=== PATIENT | female | born 1990 | race American Indian/Alaskan Native ===

== ENCOUNTER 2019-12-09 18:57 | Emergency (ER) | payer SELFPAY ==
--- NOTE | 2019-12-09 19:35 | Event Note ---
ED Screening Note Date of service: 12/09/19 Time: 19:33 ED Screening Note: Pt complains of dizziness x 1-2 weeks denies headache describes dizziness as feeling like she wants to pass out denies past medical hx This initial assessment/diagnostic orders/clinical plan/treatment(s) is/are subject to change based on patients health status, clinical progression and re- assessment by fellow clinical providers in the ED. Further treatment and workup at subsequent clinical providers discretion. Patient/guardian urged not to elope from the ED as their condition may be serious if not clinically assessed and managed. Initial orders include: labs ekg
[2019-12-09 19:38] VITALS: BP 117/69
[2019-12-09 20:09] LABS: Basophils % (Auto) 0.2 % (0.0-1.8); Eosinophils # (Auto) 0.1 K/mm3 (0.0-0.4); Eosinophils % (Auto) 0.9 % (0.0-4.3); Hematocrit 32.5 % (30.3-42.9); Hemoglobin 11.4 gm/dl (10.1-14.3); Lymphocytes # (Auto) 1.8 K/mm3 (1.2-5.4); Lymphocytes % (Auto) 29.8 % (13.4-35.0); Mean Corpuscular HGB Conc 35 % (30-34); Mean Corpuscular Volume 98 fl (79-97); Monocytes # (Auto) 0.4 K/mm3 (0.0-0.8); Monocytes % (Auto) 6.9 % (0.0-7.3); Platelet Count 129 K/mm3 (140-440); Red Cell Distribution Width 12.9 % (13.2-15.2)
[2019-12-09 20:26] LABS: Alanine Aminotransferase 17 units/L (7-56); Albumin 4.3 g/dL (3.9-5); Blood Urea Nitrogen 7 mg/dL (7-17); Calcium 9.3 mg/dL (8.4-10.2); Hemolysis Index 6
[2019-12-09 20:28] LABS: BUN/Creatinine Ratio 14
[2019-12-09 21:15] LABS: Bilirubin,Urine NEG (Negative); Blood,Urine MOD (Negative); Color,Urine Yellow (Yellow); Mucus,Urine 3+ /HPF
--- NOTE | 2019-12-09 23:06 | Emergency Department Report ---
ED General Adult HPI - General Chief complaint: Dizziness Stated complaint: DIZZY AND POSS Time Seen by Provider: 12/09/19 19:32 Source: patient Mode of arrival: Ambulatory Limitations: No Limitations - History of Present Illness Initial comments: 29-year-old F [place] female sent emerge department complaining of left flank pain and dysuria. Ports no fever, chills, sweats no chest pain no palpitations no nausea vomiting does report some mild dizziness off and on. Radiation: non-radiation Quality: burning, stabbing Associated Symptoms: denies: confusion, chest pain, cough, headaches, loss of appetite, nausea/vomiting, shortness of breath, syncope - Related Data Allergies Allergy/AdvReac Type Severity Reaction Status Date / Time No Known Allergies Allergy Unverified 12/09/19 19:34 ED Review of Systems ROS: Stated complaint: DIZZY AND POSS Other details as noted in HPI Comment: All other systems reviewed and negative ED Past Medical Hx - Past Medical History Previous Medical History?: No - Social History Smoking Status: Never Smoker ED Physical Exam - General Limitations: No Limitations General appearance: alert, in no apparent distress - Head Head exam: Present: atraumatic, normocephalic - Eye Eye exam: Present: normal appearance, PERRL, EOMI Pupils: Present: normal accommodation - ENT ENT exam: Present: normal exam, normal orophraynx, mucous membranes moist, TM's normal bilaterally - Neck Neck exam: Present: normal inspection, full ROM - Respiratory Respiratory exam: Present: normal lung sounds bilaterally. Absent: respiratory distress - Cardiovascular Cardiovascular Exam: Present: regular rate, normal rhythm. Absent: systolic murmur, diastolic murmur, rubs, gallop - GI/Abdominal GI/Abdominal exam: Present: soft, normal bowel sounds. Absent: tenderness, guarding, hyperactive bowel sounds, organomegaly - Extremities Exam Extremities exam: Present: normal inspection, normal capillary refill - Back Exam Back exam: Present: normal inspection, CVA tenderness (L). Absent: CVA tenderness (R) - Neurological Exam Neurological exam: Present: alert, oriented X3, CN II-XII intact, normal gait - Psychiatric Psychiatric exam: Present: normal affect, normal mood - Skin Skin exam: Present: warm, dry, intact, normal color. Absent: rash ED Course Vital Signs 12/09/19 19:35 Temperature 99.0 F Pulse Rate 93 H Respiratory 20 Rate Blood Pressure 117/69 O2 Sat by Pulse 98 Oximetry ED Medical Decision Making - Lab Data Result diagrams: 12/09/19 19:57 12/09/19 19:57 Lab Results 12/09/19 12/09/19 12/09/19 Range/Units 19:57 19:57 20:56 WBC 5.9 (4.5-11.0) K/mm3 RBC 3.30 L (3.65-5.03) M/mm3 Hgb 11.4 (10.1-14.3) gm/dl Hct 32.5 (30.3-42.9) % MCV 98 H (79-97) fl MCH 35 H (28-32) pg MCHC 35 H (30-34) % RDW 12.9 L (13.2-15.2) % Plt Count 129 L (140-440) K/mm3 Lymph % (Auto) 29.8 (13.4-35.0) % [place] % (Auto) 6.9 (0.0-7.3) % Eos % (Auto) 0.9 (0.0-4.3) % Baso % (Auto) 0.2 (0.0-1.8) % Lymph # (Auto) 1.8 (1.2-5.4) K/mm3 [place] # (Auto) 0.4 (0.0-0.8) K/mm3 Eos # (Auto) 0.1 (0.0-0.4) K/mm3 Baso # (Auto) 0.0 (0.0-0.1) K/mm3 Seg Neutrophils % 62.2 (40.0-70.0) % Seg Neutrophils # 3.7 (1.8-7.7) K/mm3 Sodium 138 (137-145) mmol/L Potassium 3.5 L (3.6-5.0) mmol/L Chloride 101.9 (98-107) mmol/L Carbon Dioxide 25 (22-30) mmol/L Anion Gap 15 mmol/L BUN 7 (7-17) mg/dL Creatinine 0.5 L (0.6-1.2) mg/dL Estimated GFR > 60 ml/min BUN/Creatinine Ratio 14 % Glucose 96 (65-100) mg/dL Calcium 9.3 (8.4-10.2) mg/dL Total Bilirubin 1.20 (0.1-1.2) mg/dL AST 26 (5-40) units/L ALT 17 (7-56) units/L Alkaline Phosphatase 33 L (35-129) units/L Total Protein 6.9 (6.3-8.2) g/dL Albumin 4.3 (3.9-5) g/dL Albumin/Globulin Ratio 1.7 % Urine Color Yellow (Yellow) Urine Turbidity Clear (Clear) Urine pH 6.0 (5.0-7.0) Ur Specific [place] 1.024 (1.003-1.030) Urine Protein 30 mg/dl (Negative) mg/dL Urine Glucose (UA) Neg (Negative) mg/dL Urine Ketones 20 (Negative) mg/dL Urine Blood Mod (Negative) Urine Nitrite Neg (Negative) Urine Bilirubin Neg (Negative) Urine Urobilinogen 4.0 (<2.0) mg/dL Ur Leukocyte Esterase Mod (Negative) Urine WBC (Auto) 13.0 H (0.0-6.0) /HPF Urine RBC (Auto) 21.0 (0.0-6.0) /HPF U Epithel Cells (Auto) 5.0 (0-13.0) /HPF Urine Mucus 3+ /HPF Urine Yeast (Budding) Few /HPF - Medical Decision Making This patient presents to the emergency department with symptoms consistent with acute uncomplicated cystitis. No systemic symptoms. Not septic. She is well- appearing. Low suspicion for acute pyelonephritis given the lack of fever, CVA tenderness, or systemic features. Low suspicion for for kidney stone or infected stone. Not in age range for and her history and and presentation are complicated. No no indications for labs or imaging at this time. Critical care attestation.: If time is entered above; I have spent that time in minutes in the direct care of this critically ill patient, excluding procedure time. ED Disposition Condition: Stable Referrals: PRIMARY CARE, [Primary Care Provider] - 3-5 Days
--- NOTE | 2019-12-10 02:01 | Ultrasound Report ---
ULTRASOUND OBSTETRIC INDICATION / CLINICAL INFORMATION: and left pelvic pain. Clinical Gestational Age (GA): 13.1 weeks.days TECHNIQUE: Transabdominal. COMPARISON: None available. FINDINGS: There is a single intrauterine . Biparietal Diameter = 3.2 cm = 16.1 weeks.days Head Circumference = 12.2 cm = 16.0 weeks.days Abdominal Circumference = 9.7 cm = 15.6 weeks.days Femur Length = 1.7 cm = 15.0 weeks.days Average Ultrasound Age (AUA) = 15.5 weeks.days Heart Rate: 153 beats per minute. The ventricles appear prominent. Placenta: Low lying Amniotic Fluid Volume: normal Maternal Adnexa: No significant abnormality. IMPRESSION: 1. Single, living intrauterine with estimated sonographic age of 15.5 weeks.days 2. The ventricles appear prominent. This should be followed as the progresses. Signer Name: Eulalio Morris MD Signed: 12/10/2019 1:56 AM Workstation Name: [id number]
== END 2019-12-10 02:18 | disposition home or self-care (01) ==
LOC: ED 18:57
DX: O26.891 Other specified pregnancy related conditions, first trimester (principal); R42 Dizziness and giddiness; R10.9 Unspecified abdominal pain; Z3A.01 Less than 8 weeks gestation of pregnancy
CPT/HCPCS: 36415; 76805; 80053; 81001; 84702; 84703; 85025; 86900; 86901; 87086; 93005